=== PATIENT | male | born 1990 | race Caucasian/White ===

== ENCOUNTER 2022-03-23 07:13 | Emergency (ER) | payer OTHER ==
[~2022-03-23] VITALS: Ht 170.2 cm; Wt 95.3 kg
--- NOTE | 2022-03-23 07:37 | NUR ---
Pt arrived with c/o pain on the lower ext. Pt stated that he has been walking all night. Pt stated that he rode the bus. Pt was pacing. Seen by Dr. Paul for MSE.
[2022-03-23] MEDS ORDERED: IBUPROFEN 600 MG TABLET PO ONE (07:45)
--- NOTE | 2022-03-23 07:46 | NUR ---
Pt already left without receiving Motrin. Pt has been discharged but hasn't receive discharge papers. MD made aware. Pt can leave per .
== END 2022-03-23 07:35 | disposition home or self-care (01) ==
LOC: ER 07:13
DX: M79.671 Pain in right foot (principal); S90.821A Blister (nonthermal), right foot, initial encounter; X50.3XXA Overexertion from repetitive movements, initial encounter; Y93.01 Activity, walking, marching and hiking; Y92.89 Other specified places as the place of occurrence of the external cause; Z59.00 Homelessness unspecified; F15.10 Other stimulant abuse, uncomplicated; Z88.0 Allergy status to penicillin
CPT/HCPCS: A4663